=== PATIENT | female | born 1970 ===

== ENCOUNTER 2017-05-23 17:58 | Emergency (ER) | payer BC ==
[2017-05-23] MEDS ORDERED: DiphenhydrAMINE 50 mg/ml Inj ONE (18:39)
[2017-05-23] MEDS: Sodium Chloride 0.9% 1,000 ML IV STA (18:53)
[2017-05-23] MEDS: DiphenhydrAMINE 50 mg/ml Inj IVP STA (18:54)
[2017-05-23 19:13] LABS: BASO % 0.4 % (0.0-2.0); EOS % 0.1 % (0.0-4.0); HEMATOCRIT 37.4 % (34.0-47.0); LYMPH # 0.7 K/uL (1.0-4.3); LYMPH % 7.3 % (20.0-40.0); MEAN CELL VOLUME 88.2 fl (81.0-99.0); MEAN CORPUSCULAR HEMOGLOBIN 29.9 pg (27.0-31.0); MEAN CORPUSCULAR HGB CONC 33.9 g/dL (33.0-37.0); MONO # 0.2 K/uL (0.0-0.8); MONO % 2.4 % (0.0-10.0); NEUT # 9.2 K/uL (1.8-7.0); NEUT % 89.8 % (50.0-75.0); NRBC % 0.1 % (0.0-0.0); PLATELET COUNT 176 K/uL (130-400); RED CELL DISTRIBUTION WIDTH 12.9 % (11.5-14.5); WHITE BLOOD COUNT 10.2 K/uL (4.8-10.8)
--- NOTE | 2017-05-23 19:15 | ED PDOC ---
HPI: Abdomen Time Seen by Provider: 05/23/17 18:06 Chief Complaint (Nursing): GI Problem Chief Complaint (Provider): GI Problem History Per: Patient History/Exam Limitations: no limitations Onset/Duration Of Symptoms: Days (1x) Outside of [place] travel?: No Current Symptoms Are (Timing): Still Present Severity: Moderate Location Of Pain/Discomfort: Diffuse Quality Of Discomfort: Cramping (abdominal cramping pain) Associated Symptoms: Nausea, Vomiting (10x episodes today, non bilious, non bloody), Diarrhea (2x episodes today non bloody), Other (lightheaded) Additional Complaint(s): 47 year old female with no pertinent medical history presents to the ED with complaints of vomiting that has been ongoing for 1x day. She reports having 10x episodes of non-bilious, non bloody vomiting today, and associated symptoms of 2x episodes of non bloody diarrhea and light headedness. Patient admits of drinking heavily last night (at least 5 beers, patient does not normally drink this much). She denies having any recent travel or sick contacts, and headaches. PMD: Patient does not have a PMD. Past Medical History Reviewed: Historical Data, Nursing Documentation, Vital Signs Vital Signs: Last Vital Signs Temp 98.2 F 05/24/17 01:41 Pulse 71 05/24/17 01:41 Resp 16 05/24/17 01:41 BP 94/69 L 05/24/17 01:41 Pulse Ox 100 05/24/17 15:00 - Medical History PMH: No Chronic Diseases Denies: Chronic Kidney Disease - Surgical History Surgical History: (1x) - Family History Family History: States: No Known Family Hx - Living Arrangements Living Arrangements: With Family - Social History Current smoker - smoking cessation education provided: No Alcohol: Social Drugs: Denies - Home Medications Home Medications: Ambulatory Orders Medication Instructions Recorded Ciprofloxacin HCl [Cipro] 500 mg PO BID #20 tab 05/24/17 Metronidazole [Flagyl] 500 mg PO TID #30 tablet 05/24/17 - Allergies Allergies/Adverse Reactions: Allergies Allergy/AdvReac Type Severity Reaction Status Date / Time No Known Allergies Allergy Verified 05/23/17 17:59 Review of Systems ROS Statement: Except As Marked, All Systems Reviewed And Found Negative Cardiovascular: Positive for: Light Headedness Gastrointestinal: Positive for: Nausea, Vomiting (non bilious, non bloody), Abdominal Pain (cramping pain), Diarrhea (2x episodes non bloody) Neurological: Negative for: Headache Physical Exam - Reviewed Nursing Documentation Reviewed: Yes Vital Signs Reviewed: Yes - Physical Exam Appears: Positive for: Well, Non-toxic, Uncomfortable, In Acute Distress Head Exam: Positive for: ATRAUMATIC, NORMOCEPHALIC Skin: Positive for: Normal Color, Warm, Dry Eye Exam: Positive for: Normal appearance, EOMI, PERRL ENT: Positive for: Pharynx Is (clear), Other (tacky mucous membranes) Cardiovascular/Chest: Positive for: Regular Rate, Rhythm Respiratory: Positive for: Normal Breath Sounds. Negative for: Respiratory Distress Gastrointestinal/Abdominal: Positive for: Normal Exam, Soft, Other (negative murphys sign, negative mcburney's point tenderness.). Negative for: Tenderness , Mass, Distended, Guarding, Rebound Back: Positive for: Normal Inspection. Negative for: L CVA Tenderness, R CVA Tenderness Extremity: Positive for: Normal ROM. Negative for: Swelling Neurologic/Psych: Positive for: Alert, Oriented (3x), Mood/Affect (anxious) - Laboratory Results Result Diagrams: 05/23/17 18:45 05/23/17 18:45 Urine dip results: Positive for: Ketones. Negative for: Leukocyte Esterase - ECG O2 Sat by Pulse Oximetry: 100 (RA) Pulse Ox Interpretation: Normal Medical Decision Making Medical Decision Makin:06 Initial impression: 47 year old female with intractable vomiting. Differential diagnoses include but are not limited to dehydration, electrolyte abnormality, gastritis, alcohol poisoning, and pancreatitis. Initial plan: * alcohol serum * CMP * lipase * urine * udip * CBC * benadryl 25mg IVP * IV NS 1,000ml IV 1,000mls/hr * pepcid 20mg IVP * phenergan inj 25mg IVPB * reevaluation Labs unremarkable. On reeval pt reports feeling better and given PO challenge. After PO challenge pt still having some nausea and pain. CT ordered. Endorsed to Dr Christine pending CT scan, reassessment and final ER disposition. Scribe Attestation: Documented by Beverley Major, acting as a scribe for Leonor Traore MD. Provider Scribe Attestation: All medical record entries made by the Scribe were at my direction and personally dictated by me. I have reviewed the chart and agree that the record accurately reflects my personal performance of the history, physical exam, medical decision making, and the department course for this patient. I have also personally directed, reviewed, and agree with the discharge instructions and disposition. Disposition - Clinical Impression Clinical Impression: Abdominal pain - Disposition Disposition: Transfer of Care Disposition Time: 00:00 Condition: STABLE Additional Instructions: follow up with your primary doctor in 1-2 days as well as with GI doctor return to the ED with any worsening or concerning symptoms. Prescriptions: Ciprofloxacin HCl [Cipro] 500 mg PO BID #20 tab Metronidazole [Flagyl] 500 mg PO TID #30 tablet Patient Signed Over To: Renato Christine
[2017-05-23 19:18] LABS: ALB/GLOB RATIO 1.4 (1.0-2.1); ALCOHOL SERUM < 10 mg/dl (0-10); ALKALINE PHOSPHATASE 93 U/L (38-126); ALT/SGPT 46 U/L (9-52); AST/SGOT 30 U/L (14-36); BILIRUBIN,TOTAL 0.7 mg/dl (0.2-1.3); BLOOD UREA NITROGEN 16 mg/dl (7-17); CALCIUM 9.7 mg/dL (8.4-10.2); CARBON DIOXIDE 22 mmol/L (22-30); CHLORIDE 106 mmol/L (98-107); GFR AFRICAN-AMERICAN > 60; GLUCOSE,RANDOM 136 mg/dL (65-105); LIPASE 76 U/L (23-300); POTASSIUM 3.6 MMOL/L (3.6-5.0); SODIUM 142 mmol/l (132-148); TOTAL PROTEIN 8.3 G/DL (6.3-8.2)
[2017-05-23 20:25] LABS: LARGE PLATELETS PRESENT; NEUTROPHIL 88 % (42-75); TOTAL CELLS COUNTED 100
[2017-05-23] MEDS ORDERED: Alum-Mag Hydrox-Simethicone Susp (30 mL) ONE (22:38)
[2017-05-23] MEDS: Alum-Mag Hydrox-Simethicone Susp (30 mL) PO STA (22:40)
[2017-05-23] MEDS ORDERED: Iohexol 300 100 ML IJ ONE (23:15)
[2017-05-23] MEDS ORDERED: Sodium Chloride 0.9% 50 ML IV ONE (23:15)
--- NOTE | 2017-05-24 00:27 | ED PDOC ---
- Laboratory Results Result Diagrams: 05/23/17 18:45 05/23/17 18:45 - ECG O2 Sat by Pulse Oximetry: 100 (RA) Pulse Ox Interpretation: Normal Medical Decision Making Medical Decision Making: Receiving sign out: Patient signed out to me by Dr. Traore at 00:[address] results. Scribe Attestation: Documented by Mahsa Mcgrath acting as a scribe for Renato Christine MD. Provider Attestation: All medical record entries made by the Scribe were at my direction and personally dictated by me. I have reviewed the chart and agree that the record accurately reflects my personal performance of the history, physical exam, medical decision making, and the department course for this patient. I have also personally directed, reviewed, and agree with the discharge instructions and disposition. Disposition Counseled Patient/Family Regarding: Studies Performed, Diagnosis, Need For Followup - Clinical Impression Clinical Impression: Colitis - POA Present On Arrival: None - Disposition Referrals: Hayden Ortega MD, PhD [Staff Provider] - Disposition: Routine/Home Disposition Time: 00:25 Condition: IMPROVED Additional Instructions: follow up with your primary doctor in 1-2 days as well as with GI doctor return to the ED with any worsening or concerning symptoms. Prescriptions: Ciprofloxacin HCl [Cipro] 500 mg PO BID #20 tab Metronidazole [Flagyl] 500 mg PO TID #30 tablet Instructions: Colitis (ED) Forms: [employer] ([place]), [facility] ED School/Work Excuse Progress Note - Review of Symptoms Events since last encounter: 102 CT AP FINDINGS: Lower thorax: No acute findings. ABDOMEN: Liver: Few too small to characterize lesions. Gallbladder and bile ducts: No calcified stones. No ductal dilation. Pancreas: No ductal dilation. No mass. Spleen: No splenomegaly. Adrenals: No mass. Kidneys and ureters: Few too small to characterize lesions within kidneys. No hydronephrosis. Stomach and bowel: Mild mural thickening vs underdistention of transverse, descending, sigmoid colon. No associated inflammatory stranding. No obstruction. Appendix: Normal caliber. No inflammation. PELVIS: Bladder: Unremarkable. Reproductive: Hysterectomy. ABDOMEN and PELVIS: Intraperitoneal space: No significant fluid collection. No free air. Bones/joints: No acute fracture. Soft tissues: Unremarkable. Vasculature: Unremarkable. No aneurysm. Lymph nodes: No pathologically enlarged lymph nodes. IMPRESSION: 1. Mild colitis versus underdistention. Clinical correlation is needed. 2. Incidental/non-acute findings are described above. 0120 Patient reports feeling better. Stable for discharge home with prescription antibiotics. Diagnosis: colitis Patient informed to follow up with GI for further evaluation of colitis. Informed to return to ED if symptoms worsen or new symptoms arise. pt given rx abx
--- NOTE | 2017-05-24 00:33 | CT ---
EXAM: CT Abdomen and Pelvis With Intravenous Contrast CLINICAL HISTORY: 47 years old, female; Pain; Abdominal pain; Generalized; Prior surgery; Surgery date: 6+ months; Surgery type: ; Additional info: Abd pain vomiting TECHNIQUE: Axial computed tomography images of the abdomen and pelvis with intravenous contrast. This CT exam was performed using one or more of the following dose reduction techniques: automated exposure control, adjustment of the mA and/or kV according to patient size, and/or use of iterative reconstruction technique. Coronal and sagittal reformatted images were created and reviewed. CONTRAST: 90 mL of [id number] administered intravenously. COMPARISON: No relevant prior studies available. FINDINGS: Lower thorax: No acute findings. ABDOMEN: Liver: Few too small to characterize lesions. Gallbladder and bile ducts: No calcified stones. No ductal dilation. Pancreas: No ductal dilation. No mass. Spleen: No splenomegaly. Adrenals: No mass. Kidneys and ureters: Few too small to characterize lesions within kidneys. No hydronephrosis. Stomach and bowel: Mild mural thickening vs underdistention of transverse, descending, sigmoid colon. No associated inflammatory stranding. No obstruction. Appendix: Normal caliber. No inflammation. PELVIS: Bladder: Unremarkable. Reproductive: Hysterectomy. ABDOMEN and PELVIS: Intraperitoneal space: No significant fluid collection. No free air. Bones/joints: No acute fracture. Soft tissues: Unremarkable. Vasculature: Unremarkable. No aneurysm. Lymph nodes: No pathologically enlarged lymph nodes. IMPRESSION: 1. Mild colitis versus underdistention. Clinical correlation is needed. 2. Incidental/non-acute findings are described above.
[2017-05-24 01:42] VITALS: BP 94/69; PULSE 71; RESP 16; TEMP 98.2
[2017-05-24 05:58] VITALS: O2SAT 100
== END 2017-05-24 01:42 | disposition home or self-care (01) ==
LOC: H.ER 17:58
DX: K52.9 Noninfective gastroenteritis and colitis, unspecified (principal); R42 Dizziness and giddiness
CPT/HCPCS: 74177; 80053; 81025; 83690; 85025; 96361; 96374; 96375; 99285; G0480; J1200; J2405; J2550; J7040; J7042; Q9967

== ENCOUNTER 2019-02-19 02:08 | Emergency (ER) | payer SELFPAY ==
[2019-02-19 02:23] VITALS: RESP 16; O2SAT 98
[2019-02-19] MEDS ORDERED: Sodium Chloride 0.9% 1,000 ML IV STA (02:47)
[2019-02-19 03:41] LABS: ALB/GLOB RATIO 1.3 (1.0-2.1); ALBUMIN 4.9 g/dL (3.5-5.0); ALT/SGPT 41 U/L (9-52); AST/SGOT 34 U/L (14-36); BLOOD UREA NITROGEN 20 mg/dl (7-17); CALCIUM 9.3 mg/dL (8.4-10.2); GFR NON-AFRICAN AMERICAN > 60; LIPASE 67 U/L (23-300)
[2019-02-19 03:55] LABS: BASO % 0.2 % (0.0-2.0); HEMOGLOBIN 12.7 g/dL (12.0-16.0); LYMPH # 0.6 K/uL (1.0-4.3); LYMPH % 7.1 % (20.0-40.0); MEAN CELL VOLUME 88.7 fl (81.0-99.0); MEAN CORPUSCULAR HEMOGLOBIN 29.2 pg (27.0-31.0); MEAN CORPUSCULAR HGB CONC 32.9 g/dL (33.0-37.0); MEAN PLATELET VOLUME 10.8 fl (7.2-11.7); MONO # 0.3 K/uL (0.0-0.8); MONO % 3.1 % (0.0-10.0); NEUT # 8.2 K/uL (1.8-7.0); NEUT % 89.6 % (50.0-75.0); NRBC % 0.1 % (0.0-0.0); PLATELET COUNT 175 K/uL (130-400); RBC 4.35 Mil/uL (3.80-5.20); RED CELL DISTRIBUTION WIDTH 12.9 % (11.5-14.5); WHITE BLOOD COUNT 9.2 K/uL (4.8-10.8)
--- NOTE | 2019-02-19 03:59 | ED PDOC ---
HPI: Abdomen Time Seen by Provider: 02/19/19 02:30 Chief Complaint (Nursing): GI Problem Chief Complaint (Provider): GI Problem History Per: Patient History/Exam Limitations: no limitations Onset/Duration Of Symptoms: Days (1) Additional Complaint(s): 48 y/o female presents to the ED complaining of nausea and vomiting since Tuesday. Patient states she was drinking moderately on Tuesday night and on Tuesday morning she developed nausea and multiple vomiting. Patient reports she feels sore from vomiting and hasnt taken any medication for the pain. patietn denies abdominal pain, hematemesis, diarrhea, or any fever. PMD: none provided Past Medical History Reviewed: Historical Data, Nursing Documentation, Vital Signs Vital Signs: Last Vital Signs Temp 99.8 F H 02/19/19 02:16 Pulse 89 02/19/19 02:16 Resp 16 02/19/19 02:16 BP 110/79 02/19/19 02:16 Pulse Ox 98 02/19/19 02:16 - Medical History PMH: Gastritis Denies: Chronic Kidney Disease - Surgical History Surgical History: No Surg Hx, (1x) - Family History Family History: States: No Known Family Hx - Immunization History Hx Tetanus Toxoid Vaccination: No Hx Influenza Vaccination: No Hx Pneumococcal Vaccination: No - Home Medications Home Medications: Ambulatory Orders Medication Instructions Recorded Famotidine [Pepcid] 40 mg PO DAILY #30 tab 10/07/18 Esomeprazole Magnesium [Nexium] 20 mg PO QAM #14 ecc 02/19/19 Ondansetron ODT [Zofran ODT] 4 mg PO Q6 PRN #8 odt 02/19/19 - Allergies Allergies/Adverse Reactions: Allergies Allergy/AdvReac Type Severity Reaction Status Date / Time No Known Allergies Allergy Verified 10/07/18 10:52 Review of Systems ROS Statement: Except As Marked, All Systems Reviewed And Found Negative Constitutional: Negative for: Fever Gastrointestinal: Positive for: Nausea, Vomiting. Negative for: Abdominal Pain, Diarrhea, Hematemesis Physical Exam - Reviewed Nursing Documentation Reviewed: Yes Vital Signs Reviewed: Yes - Physical Exam Appears: Positive for: Non-toxic, No Acute Distress Head Exam: Positive for: ATRAUMATIC, NORMOCEPHALIC Skin: Positive for: Normal Color, Warm, Dry Eye Exam: Positive for: EOMI, Normal appearance, PERRL ENT: Positive for: Normal ENT Inspection Neck: Positive for: Normal, Painless ROM, Supple Cardiovascular/Chest: Positive for: Regular Rate, Rhythm. Negative for: Murmur Respiratory: Positive for: Normal Breath Sounds. Negative for: Wheezing Gastrointestinal/Abdominal: Positive for: Normal Exam, Soft. Negative for: Tenderness Back: Positive for: Normal Inspection. Negative for: L CVA Tenderness, R CVA Tenderness Extremity: Positive for: Normal ROM Neurological/Psych: Positive for: Awake, Alert, Normal Tone, Oriented (x3). Negative for: Motor/Sensory Deficits - Laboratory Results Result Diagrams: 02/19/19 03:05 02/19/19 03:20 Lab Results: Total Bilirubin 0.6 mg/dl (0.2-1.3) 02/19/19 03:20 AST 34 U/L (14-36) 02/19/19 03:20 ALT 41 U/L (9-52) 02/19/19 03:20 Alkaline Phosphatase 98 U/L (38-126) 02/19/19 03:20 Total Protein 8.7 G/DL (6.3-8.2) H 02/19/19 03:20 Albumin 4.9 g/dL (3.5-5.0) 02/19/19 03:20 Globulin 3.8 gm/dL (2.2-3.9) 02/19/19 03:20 Albumin/Globulin Ratio 1.3 (1.0-2.1) 02/19/19 03:20 Lipase 67 U/L (23-300) 02/19/19 03:20 - ECG O2 Sat by Pulse Oximetry: 98 Medical Decision Making Medical Decision Making: Time: 246 Initial Impression: 48 y/o female with acute gastritis Initial Plan: -Alcohol serum -CMP -Lipase -urine -CBC -urinalysis -sodium chloride -Protonix -Zofran 0454: Labs revealed. showed no clinically significant abnormalities. Patient's symptoms improved and she is stable for discharge. Diagnosis: gastritis. Scribe Attestation: Documented by Usha Velez, acting as a scribe for Howard Landon. Provider Scribe Attestation: All medical record entries made by the Scribe were at my direction and personally dictated by me. I have reviewed the chart and agree that the record accurately reflects my personal performance of the history, physical exam, medical decision making, and the department course for this patient. I have also personally directed, reviewed, and agree with the discharge instructions and disposition. Disposition - Clinical Impression Clinical Impression: Gastritis Counseled Patient/Family Regarding: Studies Performed, Diagnosis - Disposition Disposition: Routine/Home Disposition Time: 04:45 Condition: STABLE Prescriptions: Esomeprazole Magnesium [Nexium] 20 mg PO QAM #14 ecc Ondansetron ODT [Zofran ODT] 4 mg PO Q6 PRN #8 odt PRN Reason: Nausea/Vomiting Instructions: Gastritis Forms: [facility] [employer] (Belgian) Print Language: MONGOLIAN
[2019-02-19 04:31] LABS: MONOCYTE 4 % (0-10); PLATELET ESTIMATE NORMAL (NORMAL)
[2019-02-19 04:32] LABS: BANDS 2 % (0-2); LYMPHOCYTE 8 % (20-50); NEUTROPHIL 86 % (42-75); TOTAL CELLS COUNTED 100
[2019-02-19 06:17] VITALS: BP 115/74; PULSE 76; TEMP 98.9
== END 2019-02-19 05:55 | disposition home or self-care (01) ==
LOC: H.ER 02:08
DX: K29.00 Acute gastritis without bleeding (principal)
CPT/HCPCS: 80053; 81025; 83690; 85025; 96360; 99284; C9113; G0480; J2405; J7030